=== PATIENT | male | born 1950 | race Caucasian/White ===

== ENCOUNTER → 2018-05-04 | Outpatient (CLI) | payer MEDICARE, OTHER ==
[~2018-05-04] MED LIST: ASPI-715 PO; ASPI81TA86 PO; CHOL200074 PO; CYA1000 PO; CYAN50TA3 PO; EZET10TA41 PO; FLAX100030 PO; GLUC100026 PO; GLUC750T10 PO; LEVO200T44 PO; LEVO200T50 PO; LEVO25TA57 PO; LISI2.5T60 PO; MULT-1335 PO; MULT-820 PO; OMEG-11 PO; PNEU0.5D3 IM; PSE30 PO; ROSU5TAB8 PO; SIL50 PO; SILD100T59 PO; SUMA50TA35 PO; TADA2.5T3 PO; UBID200C21 PO
[2018-05-04 07:44] LABS: PLATELET COUNT, AUTOMATED 220 K/uL (150-450)
[2018-05-04 09:05] LABS: LDL CHOLESTEROL 63 mg/dl
== END ==
LOC: LAB 07:25
PROVIDERS: ATTEND Internal Medicine
DX: Z12.5 Encounter for screening for malignant neoplasm of prostate (principal); E78.00 Pure hypercholesterolemia, unspecified; E03.9 Hypothyroidism, unspecified
CPT/HCPCS: 36415; 81001; 82550; 84443; 85025; G0103; 82040; 82247; 82310; 82374; 82435; 82465; 82565; 82947; 83718; 84075; 84132; 84153; 84155; 84295; 84450; 84460; 84478; 84520

== ENCOUNTER → 2018-05-14 | Outpatient (CLI) | payer MEDICARE, OTHER ==
[~2018-05-14] MED LIST changes: +FLU180SY11 IM; +PNEI IJ
--- NOTE | 2018-05-14 11:10 | EKG ---
FACILITY: [facility] PATIENT NAME: EDYTA HORTA : [id number] MR: [id number] V: [id number] EXAM DATE: ORDERING PHYSICIAN: LAURA PIZARRO TECHNOLOGIST: TOPHER Moreno Reason : DIZZINESS Blood Pressure : / mmHG Vent. Rate : 054 BPM Atrial Rate : 054 BPM P-R Int : 160 ms QRS Dur : 102 ms QT Int : 422 ms P-R-T Axes : 066 -27 021 degrees QTc Int : 400 ms Sinus bradycardia Otherwise normal ECG No previous ECGs available Confirmed by Jean-Claude Louise ([id number] on 05/14/2018 1:01:34 PM Referred By: GRZEGORZ Confirmed By:Jean-Claude Thacker
== END ==
LOC: RESP 10:32
PROVIDERS: ATTEND Internal Medicine
DX: Z02.9 Encounter for administrative examinations, unspecified (principal)

== ENCOUNTER → 2018-05-18 | Outpatient (CLI) | payer MEDICARE, OTHER ==
[~2018-05-18] MED LIST changes: +GADOBENATE 529MG/1ML 15ML VIAL IVP ONE
--- NOTE | 2018-05-18 15:08 | RADIOLOGY IMAGING REPORT ---
[place] [facility] [place]: Fernando Marshall : 1950 MR: [id number] V: [id number] EXAM DATE: ORDERING PHYSICIAN: LAURA PIZARRO TECHNOLOGIST: Location[place] [facility] [place] Patient: Fernando Marshall : 1950 Visit/Account:[id number] Date of Sevice: 05/18/2018 EXAMINATION: MRI Brain without intravenous contrast MRI Brain with intravenous contrast HISTORY: Chronic headache with worsened headaches over the last year. COMPARISON: None available. TECHNIQUE: Multi-planar, multi-sequence brain MRI was performed before and after IV gadolinium. CONTRAST: 15 mL of IV MultiHance FINDINGS: Brain volume: Normal. Sagittal midline structures: Negative. Ventricles: Negative. Acute ischemic changes: None. Hemorrhage: None. Masses / edema: None. Enhancement: Negative. Ley-white: Negative. White matter: A few T2/FLAIR hyperintensities in the deep white matter bilaterally. Vessels: Negative. Extra-axial: Small arachnoid cyst posterior to the medial aspect of the left cerebellar hemisphere. Calvarium / scalp: Negative. Skull base: Negative. Visualized sinuses / orbits: Negative. Visualized upper neck: Negative. IMPRESSION: 1. No acute intracranial abnormality or mass. 2. Mild chronic white matter disease, nonspecific but most likely representing chronic microvascular ischemia. 3. Small arachnoid cyst posterior to the medial side of the left cerebellar hemisphere. Report Dictated By: Gio Valdez MD at 05/18/2018 2:59 PM Report E-Signed By: Gio Valdez MD at 05/18/2018 3:04 PM WSN:[id number]
== END ==
LOC: MRI 01:10
PROVIDERS: ATTEND Internal Medicine
DX: I67.82 Cerebral ischemia (principal); G93.0 Cerebral cysts
CPT/HCPCS: 70553; A9577

== ENCOUNTER → 2018-09-01 | Outpatient (CLI) | payer MEDICARE, OTHER ==
[~2018-09-01] MED LIST changes: -GADOBENATE 529MG/1ML 15ML VIAL IVP ONE; +LEVO175T42 PO
== END ==
LOC: LAB 10:06
PROVIDERS: ATTEND Internal Medicine
DX: E03.9 Hypothyroidism, unspecified (principal)
CPT/HCPCS: 36415; 84439; 84443